=== PATIENT | female | born 1990 | race Caucasian/White ===

== ENCOUNTER 2019-02-21 01:43 | Observation (INO) | payer OTHER ==
[~2019-02-21] VITALS: Ht 170.2 cm; Wt 83.5 kg
[2019-02-21] MEDS ORDERED: THYR60 PO (02:34)
[2019-02-21] MEDS ORDERED: CARB200 PO (02:35)
[2019-02-21] MEDS ORDERED: AMPDEX10CR PO (02:36)
[2019-02-21] MEDS ORDERED: VENL25 PO (02:37)
[2019-02-21 02:52] LABS: BASOPHILS ABSOLUTE AUTO 0.04 K/mm3 (0.00-0.23); BASOPHILS PERCENT AUTO 1 % (0-2); EOSINOPHILS ABSOLUTE AUTO 0.07 K/mm3 (0.00-0.68); EOSINOPHILS PERCENT AUTO 1 % (0-6); Hematocrit 35.6 % (33.0-51.0); Hemoglobin 12.4 g/dL (11.5-16.0); IMMATURE GRAN ABSOLUTE AUTO 0.02 K/mm3 (0.00-0.10); IMMATURE GRAN PERCENT AUTO 0 % (0-1); LYMPHOCYTES PERCENT AUTO 18 % (21-46); MONOCYTES ABSOLUTE AUTO 0.69 K/mm3 (0.16-1.47); MONOCYTES PERCENT AUTO 9 % (4-13); Mean Corpuscular HGB 31.1 pg (26.0-34.0); Mean Corpuscular HGB Conc 34.8 g/dL (31.5-36.5); Mean Corpuscular Volume 89 fL (80-100); Mean Platelet Volume 8.4 fL (9.1-12.4); NEUTROPHILS ABSOLUTE AUTO 5.77 K/mm3 (1.96-9.15); NEUTROPHILS PERCENT AUTO 72 % (41-73); Platelet Count 313 K/mm3 (150-400); RDW Coefficient Variation 11.9 % (11.7-14.2); Red Blood Cell Count 3.99 M/mm3 (3.80-5.20); White Blood Cell Count 7.99 K/mm3 (4.00-11.30)
[2019-02-21 03:13] LABS: Alanine Aminotransfer (ALT/SGP 18 U/L (12-78); Albumin, Blood 4.4 g/dL (3.4-5.0); Albumin/Globulin Ratio 1.5 (0.8-1.8); Alk Phos 83 U/L (50-136); Anion Gap 10 mmol/L (6-16); Aspartate Aminotrans (AST/SGOT 7 U/L (12-37); Bilirubin, Total 0.3 mg/dL (0.1-1.0); Blood Urea Nitrogen 8 mg/dL (8-24); Bun/Creatinine Ratio 15.6 (12.0-20.0); CO2, Blood 23 mmol/L (21-32); Calcium, Blood 8.2 mg/dL (8.5-10.1); Chloride, Blood 91 mmol/L (98-108); Creatinine, Blood 0.51 mg/dL (0.40-1.00); Ethanol (Alcohol), Blood, Med <3 mg/dL; Glomerular Filtration Rate >60 (60-); Glucose, Blood 81 mg/dL (70-99); Potassium, Blood 4.1 mmol/L (3.5-5.5); Salicylate <1.7 mg/dL (2.8-20.0); Sodium, Blood 124 mmol/L (136-145); Total Protein, Blood 7.4 g/dL (6.4-8.2)
[2019-02-21 03:19] LABS: Acetaminophen, Random <2.0 ug/mL (10.0-30.0)
[2019-02-21 03:29] LABS: Source, Urine Clean Catch
[2019-02-21 03:32] LABS: Bilirubin, Urine Neg (Neg); Blood, Urine 1+ (Neg); Glucose Qualitative, Urine Neg (Neg); Ketones, Urine Neg (Neg); Leukocyte Esterase, Urine Neg (Neg); Nitrite, Urine Neg (Neg); Protein, Urine Neg (Neg); Specific Gravity, Urine 1.005 (1.003-1.022); Urobilinogen, Urine NORM (Normal)
[2019-02-21 03:35] LABS: Appearance, Urine Clear (Clear); Color, Urine Pale Yellow (P-Yellow)
[2019-02-21 03:46] LABS: U Amphetamine Screen DETECTED; U Barbituate Screen Not Detected; U Benzodiazapine Screen Not Detected; U Buprenorphine Screen Not Detected; U Cannabinoids Screen Not Detected; U Cocaine Screen Not Detected; U Methadone Screen Not Detected; U Methamphetamine Screen Not Detected; U Opiates Screen Not Detected; U Oxycodone Screen Not Detected; U Phencyclidine Screen Not Detected; U Propoxyphene Screen Not Detected
[2019-02-21 03:47] LABS: Bacteria Rare /hpf; Red Blood Cells, Urine Rare /hpf (0-2); Squamous Epithelial Cells Few /hpf (Few); White Blood Cells, Urine Rare /hpf (0-5)
[2019-02-21 09:02] LABS: Carbamazepine 5.8 ug/mL (4.0-12.0)
[2019-02-21 12:38] LABS: Anion Gap 8 mmol/L (6-16); Blood Urea Nitrogen 5 mg/dL (8-24); Bun/Creatinine Ratio 11.7 (12.0-20.0); CO2, Blood 22 mmol/L (21-32); Calcium, Blood 8.4 mg/dL (8.5-10.1); Chloride, Blood 106 mmol/L (98-108); Creatinine, Blood 0.43 mg/dL (0.40-1.00); Glomerular Filtration Rate >60 (60-); Glucose, Blood 80 mg/dL (70-99); Potassium, Blood 4.4 mmol/L (3.5-5.5)
[2019-02-21 13:33] LABS: Sodium, Blood 136 mmol/L (136-145)
--- NOTE | 2019-02-21 14:16 | NUR ---
PT. BECAME IRATE SCREAMING AND CURSING AND STATING SHE WAS LEAVING WAS UNABLE TO LEAVE ROOM TO CARE FOR MY OTHER PT.S CAMERA TECH KEPT CALING TO SAY SHE WAS IN A CORNER WITH HER BACK TO THE CAMERA. VISCOSE DEPARTMENT WORKER, TUBING ASSEMBLER, AND SECURITY CAME TO ROOM. VISCOSE DEPARTMENT WORKER Migdalia ALBRIGHT GOT AN ORDER FROM DR. UBSBY TO MOVE HER TO ICU. REPORT CALLED TO SERVICE ASSOCIATE.
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
[2019-02-21 15:50] LABS: Anion Gap 7 mmol/L (6-16); Blood Urea Nitrogen 5 mg/dL (8-24); Bun/Creatinine Ratio 11.3 (12.0-20.0); CO2, Blood 24 mmol/L (21-32); Calcium, Blood 8.5 mg/dL (8.5-10.1); Chloride, Blood 107 mmol/L (98-108); Creatinine, Blood 0.44 mg/dL (0.40-1.00); Glomerular Filtration Rate >60 (60-); Glucose, Blood 85 mg/dL (70-99); Potassium, Blood 4.3 mmol/L (3.5-5.5); Sodium, Blood 138 mmol/L (136-145)
[2019-02-21 16:40] LABS: Osmolality, Urine 201 mos/kg (15-1400)
[2019-02-21 16:44] LABS: Sodium, Urine, Random 27 mmol/L (20-110)
--- NOTE | 2019-02-21 17:10 | NUR ---
VISITOR: PT's MOM IS AT BEDSIDE TO VISIT. THIS RN VERIFIED W/ PT THAT THIS WAS OKAY PRIOR TO MOM ENTERING ROOM. SHE HAS BROUGHT THE PT "HER FAVORITE BLANKET" & HAS VERIFIED THAT THE PT CAN HAVE IT IN HER ROOM. WILL CONTINUE TO MONITOR & UDPATE NEEDED.
--- NOTE | 2019-02-21 17:54 | NUR ---
SHIFT SUMMARY: NO ACUTE CHANGES SINCE ASSUMING CARE. CALL TO DR. THAKUR REGARDING NEED FOR AM LABWORK, ORDERS PLACED. THE PT REMAINS A&O, COOPERATIVE & WITHDRAWN. SHE CONTINUES TO BE EMOTIONAL AT RANDOM TIMES. WHEN QUESTIONS ARE ASKED OF HER, SHE LOOKS AROUND THE ROOM ERRATICALLY & HAS HAD DIFFICULTY REMEMBERING WHAT WAS ASKED OF HER ONLY MOMENTS PRIOR. OKAY'd TO REMAIN OFF HEART MONITOR PER DR. THAKUR. REMAINS ON RA W/ O2 SATS > 92%. PT HAS BT x4, PT HAS POOR APPETITE & DENIES PO INTAKE OFFERED TO HER. SHE STS SHE VOIDS W/O DIFFICULTY, HAS NOT VOIDED SINCE ARRIVAL TO ICU, DENIES NEED. SKIN OVERALL IS CDI. BRUISING TO R CHEEK & JAWLINE, SHE EXPRESSES CONCERN OVER HER SAFETY AT HOME BUT THEN WILL NOT ELABORATE & STS SHE DOESN'T WANT HER TO "GET IN TROUBLE FOR NO REASON." THE PT's MOTHER HAS REQUESTED THAT IF SHE NEEDS LONG-TERM PSYCH PLACEMENT, THAT SHE BE TX'd TO THE [facility] AT [facility]. WILL CONTINUE TO MONITOR & REPORT OFF TO ONCOMING RN.
--- NOTE | 2019-02-21 20:00 | NUR ---
ASSUMED CARE OF PT AT 1915. REPORT RECEIVED SOME AT BEDSIDE. UPON GREETING PT NOTED SHE WAS SOMEWHAT APPREHENSIVE, AND GUARDED. EXPLAINED PT THE PLAN OF CARE FOR THIS NIGHT, AND HS MEDICATIONS. PT STATED THAT SHE DID NOT WANT TO TAKE ZYPREXA THAT WAS ORDERED. WILL REVIEW CHART AND DR VEGA'S ORDERS. WILL NOTIFY MD OF PT WANTING TO REFUSE MED. WILL REVIEW CHART AND PLAN OF CARE FOR THIS PT.
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
--- NOTE | 2019-02-22 03:00 | NUR ---
PT HAS REMAINED IN BED SLEEPING AFTER SHE HAD RECEIVED ATIVAN AND BENADRYL. HAS NOT MADE ANY FURTHER ATTEMPTS TO ESCAPE FROM ROOM. CONTINUING WITH VIDEO MONITORING. CURTAINS OF ROOM REMAIN OPEN FOR BETTER VISUALIZATION OF PT FOR HER SAFETY.
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
--- NOTE | 2019-02-22 07:15 | NUR ---
ASSUMED CARE OF PATIENT; SEE ASSESSMENT CHARTING FOR DETAILS. WILL DISCUSS OVERALL STATUS WITH PATIENT AROUND BREAKFAST TIME; WANTING TO SLEEP AT THIS TIME AND VERY SLEEPY.
[2019-02-22 07:46] LABS: Anion Gap 7 mmol/L (6-16); Blood Urea Nitrogen 6 mg/dL (8-24); Bun/Creatinine Ratio 11.6 (12.0-20.0); CO2, Blood 24 mmol/L (21-32); Calcium, Blood 8.7 mg/dL (8.5-10.1); Chloride, Blood 107 mmol/L (98-108); Creatinine, Blood 0.52 mg/dL (0.40-1.00); Glomerular Filtration Rate >60 (60-); Glucose, Blood 71 mg/dL (70-99); Sodium, Blood 138 mmol/L (136-145)
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
--- NOTE | 2019-02-22 13:00 | NUR ---
PATIENTS' MOTHER CALLED; RN ASKED PATIENT IF SHE WANTED TO TALK TO HER MOTHER AND SHE ADAMANTLY SHOOK HER HEAD 'NO'. DOES NOT WANT TO GIVE HER MOM OR OTHER FAMILY ANY INFORMATION. RN SPOKE TO MOM AND EXPRESSED PATIENTS' WISHES. MOTHER REQUESTED RN TELL PATIENT SHE LOVES HER; RN INFORMED PATIENT; NO REACTION FROM PATIENT.
--- NOTE | 2019-02-22 13:15 | NUR ---
DR. BUSBY CAME BY TO EVAL. PATIENT; RN ADDRESSED CONCERNS FROM RN, NAY AND ETHYLENE PLANT OPERATOR; HE WILL SPEAK WITH PATIENT AND EVAL.
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
--- NOTE | 2019-02-22 13:50 | NUR ---
PATIENT OOB AND TOOK BLANKETS AND PILLOW AND LAID ON FLOOR BY WINDOW; FACED WALL; WOULD NOT RETURN TO BED; RN CONTACTED SECURE CAMERA MONITOR AND DETERMINE IF PATIENT CAN BE SEEN WHEN ON FLOOR; CAR UNLOADER STATES HE ADJUSTED CAMERA BUT CAN SEE PATIENT WITHOUT DIFFICULTY.
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
--- NOTE | 2019-02-22 15:12 | NUR ---
T/C TO DR. BUSBY TO INFORM PATIENT ATTEMPTED LEAVING HOSPITAL; ESCORTED BACK BY SECURITY; MESSAGE LEFT ON PHYSICIANS VOICE MAIL. RN THEN CONTACTED HOSPITALIST, DR. THAKUR, RE: INCIDENT OF PATIENT LEAVING ICU/SCREAMING ETC; REQUEST ATIVAN OR OTHER MED. TO HELP CALM PATIENT. PHYSICIAN INQUIRED IF PRN ZYPREXA AVAILABLE; RN ACKNOWLEDGED (PO AND IM DOSING AVAILABLE). PHYSICIAN DOES NOT WANT TO USE ATIVAN (CONTRAINDICATED WITH ZYPREXA). ALSO NO HALDOL, ETC. TO BE ORDERED.
--- NOTE | 2019-02-22 15:16 | NUR ---
SECURITY STILL IN ICU AND ASSISTING RN KEEPING PATIENT CALM FOR IM INJECTION; INJECTION GIVEN; RN EXPLAINED TO PATIENT WHAT WAS BEING DONE T/O PROCEDURE.
--- NOTE | 2019-02-22 15:30 | NUR ---
DR. BUSBY RETURNED CALL; RN INFORMED THAT ZYPREXA GIVEN IM AND PATIENT RESTING; NO NEW ORDERS GIVEN.
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
--- NOTE | 2019-02-22 16:15 | NUR ---
RN MONITORING PATIENT FACE TO FACE WELL SECURE CAMERA MONITORING IN PLACE. PATIENT SLEEPING; RESTRAINTS NOT TOO TIGHT; ROM DONE GENTLY NOT TO DISTURB PATIENT.
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
--- NOTE | 2019-02-22 18:30 | NUR ---
SUMMARY: RESTRAINTS REMOVED AT THIS TIME AND DISCONTINUED; PATIENT REMAINS ASLEEP; VSS. DINNER HELD D/T SLEEPINESS. BED ALARM ON TO CAUTION STAFF IF PATIENT TRIES TO GET OOB; REMAINS WITH CAMERA MONITORING ALSO. WILL REPORT TO ONCOMING RN.
--- NOTE | 2019-02-22 20:28 | NUR ---
ASSUMED CARE OF PT REPORT RCV'D FROM KELLY SPENCER. PT SLEEPING SUPINE IN BED, NO RESTRAINTS ON. CAMERA ON, DOOR AND CURTAIN OPEN, BED IN LOW-LOCKED POSITION WITH SIDE RAILS UP.
--- NOTE | 2019-02-22 22:17 | NUR ---
PT AWAKE AND ANSWERING QUESTIONS APPROPRIATELY. PT READILY AGREED TO TAKE HER BEDTIME PO ZYPREXA AND TO GET HER LOVENOX SHOT. PT ABLE TO STATE THAT SHE WAS "AT ", PT WAS COOPERATIVE WITH CARE AND POLITE WITH QUESTIONS. PT REQUESTED HER DINNER TRAY AND A WARM BLANKET. PT ATE ENTIRE DINNER AND IS SLEEPING AGAIN. SEE FULL SHIFT ASSESSMENT.
--- NOTE | 2019-02-22 22:30 | NUR ---
PT REQUESTING PEN AND TO CALL , PT WAS GIVEN PENCIL TO USE UNDER SUPERVISION OF ESTIMATE CLERK STUDENT. AFTER DISCUSSION WITH CHARGE NURSE THIS NURSE EXPLAINED TO PT THAT SHE WOULD BE UNABLE TO CONTACT HER AT THIS TIME. WHEN ASKED IF SHE WOULD KARINA PERMISSION TO SHARE PT'S STATUS WITH HER PT RESPONDED "NO YOU MAY NOT TELL HIM HOW I AM DOING, NOBODY CAN KNOW HOW ANOTHER PERSON IT DOING". PT SETTLED BACK IN BED, BED ALARM ON, BED IN LOW POSITION.
--- NOTE | 2019-02-22 23:50 | NUR ---
PT AWAKE AND ASKING IF SHE TOOK HER NIGHTTIME MEDS, PT STATED THAT "YOU ASKED ME IF I WOULD TAKE THEM AND THEN YOU DIDN'T GIVE THEM TO ME", RN REMINDED PT THAT SHE DID RECEIVE HER ZYPREXA AND THAT SHE WAS GIVEN A CUP OF WATER AND A SMALL MEDICINE CUP AND THEN SHE HAD AN INJECTION IN HER STOMACH (LOVENOX). PT NODDED AND ASKED RN "WOULD YOU LIE TO ME ABOUT MY MEDICATION", RN STATED NO, PT RESPONDED "OK, THANK YOU" AND ROLLED OVER TO GO BACK TO SLEEP.
--- NOTE | 2019-02-23 01:46 | NUR ---
PT UP IN ROOM TO USE TOILET. PT ASKED "DO YOU KNOW WHAT YEAR IT IS?" RN RESPONDED WITH CORRECT YEAR AND ASKED PT IF SHE KNEW WHAT MONTH IT WAS, PT RESPONDED "FEBRUARY". PT REQUESTED WATER AND LAID BACK DOWN. PT THEN ASKED RN "IS THE ONLY WAY TO GET OUT OF HERE TO GO TO ANOTHER PSYCH FACILITY?", RN CONFIRMED, PT RESPONDED "THEN I WOULD LIKE TO DO THAT WHEN IT'S AVAILABLE". PT HAS BEEN POLITE AND COOPERATIVE THUS FAR.
--- NOTE | 2019-02-23 06:02 | NUR ---
SHIFT SUMMARY NO ACUTE CHANGES OVERNIGHT. PT SLEPT SOUNDLY WITHOUT THE NEED FOR RESTRAINTS OR PRN MEDICATIONS. WHEN AWAKE PT WAS POLITE, APPROPRIATE, AND COOPERATIVE. PLEASE SEE PREVIOUS SHIFT NOTES. WILL REPORT TO DAYSHIFT NURSE.
--- NOTE | 2019-02-23 07:30 | NUR ---
ASSUMED CARE OF PATIENT; SEE ASSESSMENT CHARTING FOR DETAILS. PATIENT SLEEPING BUT ROUSES TO VERBAL COMMAND; ORIENTED TO MONTH AND YEAR BUT UNCLEAR OF DAY; ORIENTED TO SELF, ENVIRONMENT, ETC. CALM THIS AM; UP FOR BRP AND THEN TO SINK TO WASH HANDS; THEN BACK TO BED; FLAT AFFECT. LUNGS CLEAR AND VSS; NO ACUTE DISCOMFORT. BRUISES TO FACE AND EXTREM. FADING OUT. POC IS FOR PATIENT TO TRANSFER TO AN INPATIENT PSYCH FACILITY; AWAITING VACANCY.
--- NOTE | 2019-02-23 09:30 | NUR ---
T/C FROM [facility] IN [place], [place]; SPOKE TO BOBBY (INTAKE COUNSELOR); RN ANSWERED HER QUESTIONS. BOBBY WILL HAVE RN CALL FOR REPORT; PATIENT TO BE ADMITTED UNDER DR. CAMPOS (PSYCH. PHYSCIAN BUSINESS DATABASE ANALYST).RN LEFT PHONE NUMBER OF HOSPITALIST, DR. THAKUR, WITH BOBBY; SHE WILL HAVE DR. CAMPOS CALL HIM WITH REPORT, ETC.
--- NOTE | 2019-02-23 09:35 | NUR ---
T/C FROM [facility], FROM, [facility]; RN GAVE UPDATE RE: PATIENT TRANSFERRING TO [facility]; V/U.
--- NOTE | 2019-02-23 10:12 | NUR ---
T/C FROM KELLY MCDONALD AT [facility]; SHE WILL BE RECEIVING RN. REPORT GIVEN AND QUESTIONS ANSWERED. PATIENTS' IV TO BE DC'D BEFORE TRANSPORT.
--- NOTE | 2019-02-23 10:30 | NUR ---
T/C FROM BOBBY BROWNE WHO STATES [employer] FAXED PAPERS REQUESTED BY [facility] (INTAKE) AT [facility] AND [facility] SET UP FOR 13:00.
--- NOTE | 2019-02-23 11:50 | NUR ---
IV DC'D FOR TRANSPORT AND PATIENT GIVEN ANOTHER DOSE OF ZYPREXA TO KEEP PATIENT CALM FOR TRANSPORT. ATE 100% OF LUNCH AND THEN BACK TO SLEEP.
[2019-02-23] MEDS ORDERED: Zyprexa Zydis10 MG PO (13:07)
[2019-02-23] MEDS ORDERED: OLAN10A PO (13:09)
--- NOTE | 2019-02-23 13:40 | NUR ---
[facility] NOT YET ARRIVED; RN T/C TO [facility] AND SPOKE TO HALLIE WHO INQUIRED RE: INSURANCE, ETC. RN GAVE INFORM. AND HALLIE WILL CALL BACK AND FIND OUT WHAT THE HOLD UP IS.
--- NOTE | 2019-02-23 13:45 | NUR ---
T/C TO BOBBY BROWNE RN (COMMERCIAL ESCROW ASSISTANT) RE: SECURE TRANSFER ISSUE; SHE WILL CONTACT THEM, AGAIN.
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
--- NOTE | 2019-02-23 16:55 | NUR ---
T/C FROM PATIENTS' SPOUSE, MATTHIAS. RN ADVISED PATIENT WILL BE TRANSFERRING TO INPATIENT FACILITY SHORTLY. INFORMED HIM OF FACILITY NAME AND LOCATION AND REQUESTED MATTHIAS INFORM PATIENTS' MOTHER AND ANYOTHER SIGNIFICANT INDIVIDUALS. MATTHIAS ACKNOWLEDGED; STATES PATIENT HAS BEEN TO [facility] IN THE PAST AND SHE DOESN'T LIKE IT; RN ADVISED PATIENT STATES SHE DOESN'T LIKE THIS HOSPITAL EITHER DEPENDING ON HER MOOD; HE V/U.
--- NOTE | 2019-02-23 17:08 | NUR ---
SECURE PHOTO PRINT SPECIALIST, LUPE, ARRIVED. RN ADVISED THAT PATIENT SLEEPY; RN WILL LET PATIENT FINISH DINNER AND THEN WILL UPDATE HER THAT SHE HAS A ROOM FOR TRANSFER. LUPE TOOK PATIENTS' PERSONAL BELONGINGS (LABELED WITH PATIENTS' NAME) AND PLACED IN TRUNK OF VEHICLE TRANSPORTING PATIENT.
--- NOTE | 2019-02-23 17:15 | NUR ---
RN INFORMED PATIENT OF RIDE HERE TO TAKE PATIENT TO [facility] AT [facility]; PATIENT DID NOT SEEM UNDULY SURPRISED. RN WENT THROUGH D/C INSTRUCTIONS AND HAD PATIENT SIGN ACKNOWLEDGEMENT OF RECEIPT; NOTE: PATIENT SCRATCHED THROUGH AREA THAT STATED SCHIZOAFFECTIVE DISORDER BEFORE SIGNING FORM; STATED SHE DOESN'T HAVE THAT.
--- NOTE | 2019-02-23 17:20 | NUR ---
DISCHARGED FROM [facility]; TO [facility] VIA W/C; ACCOMPANIED BY 2 [facility] SECURITY OFFICERS AND SECURE NEWS AGENT; PATIENT BEING COOPERATIVE; NO YELLING OR TRYING TO GET AWAY. BELONGINGS SENT WITH PATIENT; PLACED IN TRUNK OF [facility] TRANSPORT VEHICLE.
--- NOTE | 2019-02-23 17:40 | NUR ---
T/C TO [facility]; INFORMED STAFF THAT PATIENT LEFT ABOUT 1730 AND SHOULD ARRIVE AROUND 2029; DEPENDENT ON TRAFFIC; V/U.
== END 2019-02-23 17:22 ==
LOC: ER 01:43 → MEDS 01:44 → ICUE 01:44 → MEDS 01:44 → ICUE 11:30 → ICUW 14:16 → ICUE 14:38
PROVIDERS: Emergency Medicine; Hospitalist; ADMIT Internal Medicine
DX: F23 Brief psychotic disorder (principal); F32.9 Major depressive disorder, single episode, unspecified; E87.1 Hypo-osmolality and hyponatremia; E03.9 Hypothyroidism, unspecified; F43.10 Post-traumatic stress disorder, unspecified; E66.3 Overweight; Z68.28 Body mass index [BMI] 28.0-28.9, adult; Z79.899 Other long term (current) drug therapy
CPT/HCPCS: 36415; 80048; 80053; 80156; 81001; 81025; 82533; 83930; 83935; 84300; 84443; 85025; 96372; 96374; 96375; 99285; G0378; G0480; J1200; J1650; J2060; J7030; Q3014

== ENCOUNTER 2019-03-03 20:09 | Observation (INO) | payer OTHER ==
[~2019-03-03] VITALS: Ht 170.2 cm; Wt 72.6 kg
[~2019-03-03 20:09] MED LIST: AMPDEX10CR PO; CARB200 PO; OLAN10A PO; THYR60 PO; VENL25 PO; Zyprexa Zydis10 MG PO
[2019-03-03] MEDS ORDERED: Amphetamine Sal20 MG PO (20:58)
[2019-03-03] MEDS ORDERED: CARBAMAZEPINE200 M1 PO (20:58)
[2019-03-03] MEDS ORDERED: OLAN5 PO (20:58)
[2019-03-03] MEDS ORDERED: VENL75ER PO ×2 (20:59→21:44)
[2019-03-03] MEDS ORDERED: OXCA150 PO (21:44)
[2019-03-03] MEDS ORDERED: THYR60 PO (21:52)
== END 2019-03-03 22:46 | disposition home or self-care (01) ==
LOC: ER 20:09 → EOR 20:59
PROVIDERS: ADMIT Emergency Medicine
DX: F43.10 Post-traumatic stress disorder, unspecified (principal); F32.9 Major depressive disorder, single episode, unspecified; F41.9 Anxiety disorder, unspecified; E03.9 Hypothyroidism, unspecified; Z79.899 Other long term (current) drug therapy; Z87.891 Personal history of nicotine dependence
CPT/HCPCS: 99285; G0378; Q3014

== ENCOUNTER → 2022-02-28 | Outpatient (CLI) | payer OTHER ==
[~2022-02-28] MED LIST changes: +Amphetamine Sal20 MG PO; +CARBAMAZEPINE200 M1 PO; +OLAN5 PO; +OXCA150 PO; +VENL75ER PO
[2022-03-01 17:08] LABS: HPV 16 Negative (Negative); HPV 18 Negative (Negative); HPV OTHER HR TYPES Negative (Negative)
== END | disposition home or self-care (01) ==
LOC: LAB 18:35 → LAB SHORT 18:35
PROVIDERS: Physician Assistant
DX: Z01.419 Encounter for gynecological examination (general) (routine) without abnormal findings (principal)
CPT/HCPCS: 87624; G0123